=== PATIENT | male | born 1970 | race Two or more races ===

== ENCOUNTER → 2017-10-14 | Outpatient (CLI) | payer OTHER | END | disposition home or self-care (01) | LOC: HKI 10:34 | DX: M25.561 Pain in right knee (principal) | CPT/HCPCS: 73562; 73562-RT ==

== ENCOUNTER → 2017-12-24 | Outpatient (CLI) | payer OTHER | END | disposition home or self-care (01) | LOC: HKI 14:33 | DX: M23.221 Derangement of posterior horn of medial meniscus due to old tear or injury, right knee (principal) | CPT/HCPCS: Z7500 ==

== ENCOUNTER → 2018-03-11 | Outpatient (CLI) | payer OTHER | END | disposition home or self-care (01) | LOC: HKI 13:19 | DX: Z01.818 Encounter for other preprocedural examination (principal) | CPT/HCPCS: Z7500 ==

== ENCOUNTER 2018-03-12 08:24 | Day surgery (SDC) | payer OTHER ==
[~2018-03-12 08:24] MED LIST: CEFAZOLIN 1 GM INJ; DEXAMETHASONE 4 MG/ML 1 ML INJ; METOCLOPRAMIDE 10 MG INJ; ONDANSETRON 4 MG INJ
[2018-03-12] MEDS ORDERED: HYDROCODONE/APAP (5/325) TAB PO ×2 (09:00)
[2018-03-12] MEDS ORDERED: ONDANSETRON 4 MG INJ IV ×2 (09:00→12:00)
[2018-03-12] MEDS ORDERED: LIDOCAINE 1% (MPF) 10 ML INJ (09:23)
[2018-03-12] MEDS ORDERED: TRIAMCINOLONE ACET 40 MG/ML INJ (09:23)
[2018-03-12] MEDS: ACETAMINOPHEN 1000MG/100ML IV 100 ML IVPB ×2 (09:34→13:33)
[2018-03-12] MEDS: oxyCODONE (CR) 10 MG TAB [oxyCONTIN] PO (09:35)
[2018-03-12] MEDS: ONDANSETRON 4 MG INJ IV (09:35)
[2018-03-12] MEDS: LANSOPRAZOLE 30 MG CAP PO (09:35)
[2018-03-12] MEDS: DEXAMETHASONE 4 MG/ML 1 ML INJ IV (09:35)
[2018-03-12] MEDS: CELECOXIB 200 MG CAP PO (09:35)
[2018-03-12] MEDS ORDERED: FENTAnyl 50 MCG/ML VIAL ×2 (10:01→11:35)
[2018-03-12] MEDS ORDERED: MIDAZOLAM 1 MG/ML 2 ML INJ (10:02)
[2018-03-12] MEDS ORDERED: LIDOCAINE 1% (MPF) 30 ML INJ (10:49)
[2018-03-12] MEDS ORDERED: LIDOCAINE 2% (SDV) 5 ML INJ (11:00)
[2018-03-12] MEDS ORDERED: PROPOFOL 20 ML (11:00)
[2018-03-12] MEDS: CEFAZOLIN SODIUM 2GM/D5W 50 X1 IVPB (11:15)
[2018-03-12] MEDS: TRIAMCINOLONE ACET 40 MG/ML INJ (11:37)
[2018-03-12] MEDS: LIDOCAINE 1% (MPF) 30 ML INJ (11:37)
[2018-03-12] MEDS ORDERED: HYDROmorphONE (0.2 MG/ML) 10ML SYG IV ×2 (12:00)
[2018-03-12] MEDS ORDERED: FENTAnyl 50 MCG/ML VIAL IV ×2 (12:00)
[2018-03-12] MEDS ORDERED: KETOROLAC 30 MG INJ IV (12:00)
== END 2018-03-12 14:40 | disposition home or self-care (01) ==
LOC: SDS 08:24
DX: M23.221 Derangement of posterior horn of medial meniscus due to old tear or injury, right knee (principal)
CPT/HCPCS: 29881

== ENCOUNTER → 2018-03-22 | Outpatient (CLI) | payer OTHER | END | disposition home or self-care (01) | LOC: HKI 10:54 | DX: Z47.1 Aftercare following joint replacement surgery (principal); S83.281D Other tear of lateral meniscus, current injury, right knee, subsequent encounter ==